=== PATIENT | male | born 1980 | race Caucasian/White ===

== ENCOUNTER 2020-07-16 09:47 | Emergency (ER) | payer OTHER ==
[~2020-07-16] VITALS: Ht 175.3 cm; Wt 74.8 kg
[2020-07-16 09:51] VITALS: BP 134/81
--- NOTE | 2020-07-16 09:54 | NUR ---
SEEN AND EXAMINED BY .
[2020-07-16] MEDS ORDERED: NALO4SPR NS (09:58)
--- NOTE | 2020-07-16 10:01 | NUR ---
Patient discharged in custody in stable condition. Written and verbal after care instructions given. Patient verbalizes understanding of instruction.
== END 2020-07-16 10:04 ==
LOC: ER 09:54
DX: F19.10 Other psychoactive substance abuse, uncomplicated (principal)

== ENCOUNTER 2021-08-20 04:33 | Emergency (ER) | payer SELFPAY ==
[~2021-08-20] VITALS: Ht 177.8 cm; Wt 88.5 kg
[~2021-08-20 04:33] MED LIST: NALO4SPR NS
[2021-08-20 04:35] VITALS: BP 141/84
[2021-08-20] MEDS ORDERED: TDAP [DIPH/PERTUSSIS/TET] 0.5 ML VIAL IM ONE ×2 (04:52→05:00)
--- NOTE | 2021-08-20 05:10 | NUR ---
Patient discharged to home in stable condition. Written and verbal after care instructions given. Patient verbalizes understanding of instruction.
== END 2021-08-20 05:11 | disposition home or self-care (01) ==
LOC: ER 04:33
DX: S61.412A Laceration without foreign body of left hand, initial encounter (principal); W26.8XXA Contact with other sharp object(s), not elsewhere classified, initial encounter; Y93.89 Activity, other specified; Y92.89 Other specified places as the place of occurrence of the external cause; Y99.8 Other external cause status
CPT/HCPCS: 90715

== ENCOUNTER 2025-04-08 06:46 | Emergency (ER) | payer MEDICAID ==
[~2025-04-08] VITALS: Ht 177.8 cm; Wt 77.1 kg
[2025-04-08] MEDS ORDERED: KETOROLAC TROMETHAMINE 15 MG/ML VIAL ONE (07:40)
[2025-04-08] MEDS: KETOROLAC TROMETHAMINE 15 MG/ML VIAL IM ONE (07:53)
[2025-04-08] MEDS ORDERED: NAPR-1164 PO (07:57)
[2025-04-08 08:02] VITALS: BP 128/79; TEMP 97.8; O2SAT 99
== END 2025-04-08 08:03 | disposition home or self-care (01) ==
LOC: ER 06:50
DX: M25.512 Pain in left shoulder (principal); F11.90 Opioid use, unspecified, uncomplicated
CPT/HCPCS: 99283; 96372; 73030; J1885